=== PATIENT | male | born 1990 | race Caucasian/White ===

== ENCOUNTER 2019-10-26 08:46 | Outpatient (CLI) | payer BC ==
--- NOTE | 2019-10-26 09:07 | ULT ---
US Renal Bilateral STANDARD History: Chronic kidney disease Comparison: None. Findings: Real-time grayscale and color evaluation of the kidneys and urinary bladder was performed. The right kidney measures 10.9 x 5.1 x 4.8 cm and the left kidney measures 10.6 x 4.6 x 4.4 cm. The urinary bladder is unremarkable. No renal mass, hydronephrosis, or abnormal calcifications are appreciated. Both ureteral jets are vis ualized. Impression: No evidence for obstructive uropathy.
== END 2019-10-26 08:47 | disposition home or self-care (01) ==
LOC: BICULT 08:46
PROVIDERS: ATTEND Internal Medicine Nephrology
DX: N18.2 Chronic kidney disease, stage 2 (mild) (principal); D63.1 Anemia in chronic kidney disease; R80.9 Proteinuria, unspecified
CPT/HCPCS: 36415; 76770; 80048; 82570; 84156; 85014; 85018